=== PATIENT | female | born 1940 | race Caucasian/White ===

== ENCOUNTER 2022-08-13 01:56 | Inpatient (IN) | payer OTHER ==
[2022-08-13] MEDS ORDERED: ACETAMINOPHEN 1000 MG/100 ML BAG IVPB ONE ×2 (02:32→06:49)
[2022-08-13] MEDS ORDERED: LIDOCAINE 5% TOPICAL PATCH TP ONE (02:32)
[2022-08-13] MEDS ORDERED: morphine CARPU-JECT 2 MG/1 ML DISP.SYRIN IVPUSH ONE (02:32)
[2022-08-13 02:49] LABS: BASO % 0.6 % (0-2.0); EOS % 0.4 % (0-4.5); HEMATOCRIT 38.2 % (32.4-45.2); HEMOGLOBIN 13.3 GM/dL (10.7-15.3); LYMPH % 17.9 % (8-40); MCH 32.2 pg (25.7-33.7); MCHC 34.7 g/dl (32.0-36.0); MEAN CELL VOLUME 92.8 fl (80-96); MEAN PLT VOLUME 7.5 fl (7.5-11.1); MONO % 6.6 % (3.8-10.2); NEUT % 74.5 % (42.8-82.8); PLATELET COUNT 151 10^3/uL (134-434); RBC 4.12 M/mm3 (3.60-5.2); RDW 13.8 % (11.6-15.6)
[2022-08-13 02:55] LABS: INR 1.02 (0.83-1.09); PROTHROMBIN TIME (PATIENT) 11.7 SEC (9.7-13.0)
[2022-08-13] MEDS ORDERED: ACETAMINOPHEN INJECTION 100 ML IVPB ONE ×3 (02:55→15:43)
[2022-08-13] MEDS ORDERED: LIDOCAINE 5% TOPICAL PATCH ONE (02:56)
[2022-08-13 03:09] LABS: ALBUMIN 3.7 g/dl (3.4-5.0); BLOOD UREA NITROGEN 21.1 mg/dL (7-18); CALCIUM 8.9 mg/dL (8.5-10.1)
[2022-08-13 03:12] LABS: CREATININE 0.7 mg/dL (0.55-1.3)
[2022-08-13 03:15] LABS: BILIRUBIN,TOTAL 0.6 mg/dL (0.2-1); TOT PROT 6.4 g/dl (6.4-8.2)
[2022-08-13] MEDS ORDERED: KETOROLAC TROMETHAMINE 15 MG/ML VIAL IM ONE (06:10)
[2022-08-13] MEDS ORDERED: KETOROLAC TROMETHAMINE 15 MG/ML VIAL ONE (06:24)
[2022-08-13] MEDS ORDERED: HYDROmorphone HCL CARPU-JECT 2 MG/1 ML DISP.SYRIN IVPB ONE (06:45)
[2022-08-13] MEDS ORDERED: HYDROmorphone HCl 2 MG/ML VIAL ONE (07:37)
[2022-08-13] MEDS ORDERED: ACETAMINOPHEN 1000 MG/100 ML BAG IVPB PRN (14:55)
[2022-08-13] MEDS ORDERED: IBUPROFEN 400 MG TABLET (FP) PO PRN (15:15)
[2022-08-13] MEDS ORDERED: IBUPROFEN 400 MG TABLET (FP) PO ONE (18:01)
[2022-08-13] MEDS: IBUPROFEN 400 MG TABLET (FP) PO PRN (18:03)
[2022-08-13] MEDS ORDERED: HEPARIN NA (PORCINE) 5,000 UNITS/ML 1ML VIAL ONE (21:52)
[2022-08-13] MEDS: HEPARIN NA (PORCINE) 5,000 UNITS/ML 1ML VIAL SQ SCH (22:00)
[2022-08-13] MEDS: LIDOCAINE PATCH REMOVAL MC SCH (22:00)
[2022-08-14] MEDS ORDERED: FAMOTIDINE 20 MG TABLET ONE (09:28)
[2022-08-14] MEDS ORDERED: HEPARIN NA (PORCINE) 5,000 UNITS/ML 1ML VIAL ONE (09:28)
[2022-08-14] MEDS: HEPARIN NA (PORCINE) 5,000 UNITS/ML 1ML VIAL SQ SCH ×2 (09:33→21:34)
[2022-08-14] MEDS: FAMOTIDINE 20 MG TABLET PO SCH (09:33)
[2022-08-14 17:06] LABS: BASO % 0.1 % (0-2.0); HEMATOCRIT 22.1 % (32.4-45.2); HEMOGLOBIN 7.7 GM/dL (10.7-15.3); LYMPH % 11.3 % (8-40); MCH 32.7 pg (25.7-33.7); MEAN CELL VOLUME 93.4 fl (80-96); MEAN PLT VOLUME 8.4 fl (7.5-11.1); MONO % 7.4 % (3.8-10.2); NEUT % 81.2 % (42.8-82.8); PLATELET COUNT 130 10^3/uL (134-434); RBC 2.37 M/mm3 (3.60-5.2); WHITE BLOOD COUNT 9.8 K/mm3 (4.0-10.0)
[2022-08-14 17:38] LABS: CALCIUM 8.5 mg/dL (8.5-10.1)
[2022-08-14 17:42] LABS: CREATININE 1.1 mg/dL (0.55-1.3)
[2022-08-14 18:18] LABS: BLOOD UREA NITROGEN 47.6 mg/dL (7-18)
[2022-08-14] MEDS: IBUPROFEN 400 MG TABLET (FP) PO PRN (21:33)
[2022-08-14] MEDS: LIDOCAINE PATCH REMOVAL MC SCH (21:34)
[2022-08-15] MEDS ORDERED: SODIUM CHLORIDE 1,000 ML IV SCH ×2 (08:15→19:44)
[2022-08-15 08:31] LABS: EPI CELLS 2 /uL (0-25.1); HYALINE CASTS 0 /uL (0-3.1); URINE APPEARANCE CLEAR; URINE BACTERIA 5323 /uL (0-1359); URINE BILIRUBIN NEGATIVE (NEGATIVE); URINE COLOR YELLOW; URINE GLUCOSE (UA) 3+ (NEGATIVE); URINE KETONE TRACE (NEGATIVE); URINE LEUK ESTERASE TRACE (NEGATIVE); URINE NITRITE NEGATIVE (NEGATIVE); URINE PROTEIN NEGATIVE (NEGATIVE); URINE RBC 4 /uL (0-23.9); URINE UROBILINOGEN 0.2 mg/dL (0.2-1.0); URINE WBC 175 /uL (0-25.8)
[2022-08-15 09:19] LABS: YEAST NO SEEN (NEGATIVE)
[2022-08-15] MEDS ORDERED: CEFTRIAXONE 1 GM in DEXTROSE 5%-WATER - 50 ML IVPB SCH (10:00)
[2022-08-15] MEDS: FAMOTIDINE 20 MG TABLET PO SCH (10:20)
[2022-08-15] MEDS ORDERED: ACETAMINOPHEN 1000 MG/100 ML BAG IVPB PRN ×2 (10:36→19:44)
[2022-08-15 10:50] LABS: BASO % 0.2 % (0-2.0); EOS % 0.1 % (0-4.5); HEMATOCRIT 20.8 % (32.4-45.2); HEMOGLOBIN 7.3 GM/dL (10.7-15.3); LYMPH % 13.7 % (8-40); MCH 32.5 pg (25.7-33.7); MCHC 34.8 g/dl (32.0-36.0); MEAN CELL VOLUME 93.3 fl (80-96); MEAN PLT VOLUME 8.8 fl (7.5-11.1); MONO % 7.4 % (3.8-10.2); NEUT % 78.6 % (42.8-82.8); PLATELET COUNT 135 10^3/uL (134-434); RBC 2.23 M/mm3 (3.60-5.2); RDW 14.3 % (11.6-15.6); WHITE BLOOD COUNT 10.6 K/mm3 (4.0-10.0)
[2022-08-15] MEDS: INSULIN (NOVOLOG) ASPART 100 UNITS/ML 10ML VIAL SQ SCH ×3 (11:14→21:44)
[2022-08-15] MEDS ORDERED: PHYTONADIONE 10 MG/1 ML AMP SQ ONE (16:16)
[2022-08-15] MEDS: MUPIROCIN 2% TOPICAL OINTMENT FOR DECOLONIZATION NS SCH (21:43)
[2022-08-15] MEDS: LIDOCAINE PATCH REMOVAL MC SCH (21:44)
[2022-08-15] MEDS ORDERED: CHLORHEXIDINE GLUCONATE 4% CLEANSER FOR DECOLONIZATION TP SCH (22:00)
[2022-08-15 22:37] LABS: BASO % 0.3 % (0-2.0); HEMATOCRIT 24.9 % (32.4-45.2); HEMOGLOBIN 8.6 GM/dL (10.7-15.3); LYMPH % 21.3 % (8-40); MCH 32.1 pg (25.7-33.7); MCHC 34.7 g/dl (32.0-36.0); MEAN CELL VOLUME 92.6 fl (80-96); MEAN PLT VOLUME 7.8 fl (7.5-11.1); MONO % 7.3 % (3.8-10.2); NEUT % 71.1 % (42.8-82.8); PLATELET COUNT 147 10^3/uL (134-434); RBC 2.69 M/mm3 (3.60-5.2); RDW 13.9 % (11.6-15.6); WHITE BLOOD COUNT 11.1 K/mm3 (4.0-10.0)
[2022-08-15 22:57] LABS: ALBUMIN 3.5 g/dl (3.4-5.0); CALCIUM 8.7 mg/dL (8.5-10.1)
[2022-08-15 23:00] LABS: CREATININE 0.6 mg/dL (0.55-1.3)
[2022-08-15 23:02] LABS: BILIRUBIN,TOTAL 0.9 mg/dL (0.2-1); TOT PROT 6.4 g/dl (6.4-8.2)
[2022-08-16] MEDS: INSULIN (NOVOLOG) ASPART 100 UNITS/ML 10ML VIAL SQ SCH ×4 (07:02→23:20)
[2022-08-16 08:14] LABS: BASO % 0.4 % (0-2.0); EOS % 0.1 % (0-4.5); HEMATOCRIT 22.6 % (32.4-45.2); LYMPH % 23.3 % (8-40); MCH 32.6 pg (25.7-33.7); MCHC 35.3 g/dl (32.0-36.0); MEAN CELL VOLUME 92.4 fl (80-96); MEAN PLT VOLUME 8.6 fl (7.5-11.1); MONO % 6.3 % (3.8-10.2); NEUT % 69.9 % (42.8-82.8); PLATELET COUNT 139 10^3/uL (134-434); RBC 2.45 M/mm3 (3.60-5.2); RDW 14.1 % (11.6-15.6); RETICULOCYTES 2.52 % (0.5-1.5); WHITE BLOOD COUNT 8.3 K/mm3 (4.0-10.0)
[2022-08-16 08:25] LABS: CALCIUM 8.2 mg/dL (8.5-10.1)
[2022-08-16 08:26] LABS: ALBUMIN 3.1 g/dl (3.4-5.0); BLOOD UREA NITROGEN 33.2 mg/dL (7-18)
[2022-08-16 08:29] LABS: CREATININE 0.5 mg/dL (0.55-1.3)
[2022-08-16 08:30] LABS: TOT PROT 5.7 g/dl (6.4-8.2)
[2022-08-16] MEDS ORDERED: traMADol HCL 50 MG TABLET PO ONE (08:50)
[2022-08-16] MEDS ORDERED: CEFTRIAXONE 1 GM in DEXTROSE 5%-WATER - 50 ML IVPB SCH (10:00)
[2022-08-16] MEDS ORDERED: FAMOTIDINE 20 MG TABLET PO SCH (10:00)
[2022-08-16] MEDS: MUPIROCIN 2% TOPICAL OINTMENT FOR DECOLONIZATION NS SCH (11:05)
[2022-08-16 20:19] LABS: BASO % 0.3 % (0-2.0); EOS % 0.5 % (0-4.5); HEMATOCRIT 22.5 % (32.4-45.2); HEMOGLOBIN 7.7 GM/dL (10.7-15.3); LYMPH % 25.6 % (8-40); MCH 31.8 pg (25.7-33.7); MCHC 34.1 g/dl (32.0-36.0); MEAN CELL VOLUME 93.3 fl (80-96); MEAN PLT VOLUME 7.5 fl (7.5-11.1); MONO % 8.1 % (3.8-10.2); NEUT % 65.5 % (42.8-82.8); PLATELET COUNT 151 10^3/uL (134-434); RBC 2.42 M/mm3 (3.60-5.2); RDW 14.1 % (11.6-15.6); WHITE BLOOD COUNT 7.9 K/mm3 (4.0-10.0)
[2022-08-16 20:39] LABS: INR 0.98 (0.83-1.09); PROTHROMBIN TIME (PATIENT) 11.3 SEC (9.7-13.0)
[2022-08-16 20:41] LABS: ACTIVATED PTT 22.3 SECONDS (25.2-36.5)
[2022-08-16] MEDS: LIDOCAINE PATCH REMOVAL MC SCH (23:22)
[2022-08-17] MEDS: INSULIN (NOVOLOG) ASPART 100 UNITS/ML 10ML VIAL SQ SCH (06:39)
[2022-08-17] MEDS: CEFTRIAXONE 1 GM in DEXTROSE 5%-WATER - 50 ML IVPB SCH (09:23)
[2022-08-17] MEDS: FAMOTIDINE 20 MG TABLET PO SCH (09:23)
[2022-08-17] MEDS: MULTIVITAMINS (DAILY MVI) TABLET (FP) PO SCH (10:24)
[2022-08-17] MEDS: FERROUS SO4 325 MG TABLET (FP) PO SCH (10:24)
[2022-08-17] MEDS: ACETAMINOPHEN 325 MG TABLET (FP) PO PRN ×2 (10:31→17:47)
[2022-08-17 11:49] LABS: BASO % 0.3 % (0-2.0); EOS % 0.3 % (0-4.5); HEMATOCRIT 24.3 % (32.4-45.2); HEMOGLOBIN 8.3 GM/dL (10.7-15.3); LYMPH % 17.8 % (8-40); MCH 31.8 pg (25.7-33.7); MCHC 34.3 g/dl (32.0-36.0); MEAN CELL VOLUME 92.7 fl (80-96); MEAN PLT VOLUME 8.1 fl (7.5-11.1); MONO % 8.2 % (3.8-10.2); NEUT % 73.4 % (42.8-82.8); PLATELET COUNT 169 10^3/uL (134-434); RBC 2.62 M/mm3 (3.60-5.2); WHITE BLOOD COUNT 7.3 K/mm3 (4.0-10.0)
[2022-08-17] MEDS: INSULIN SLIDING SCALE (NOVOLOG) 1 VIAL SQ SCH ×3 (12:09→21:10)
[2022-08-17 12:14] LABS: BLOOD UREA NITROGEN 19.9 mg/dL (7-18)
[2022-08-17 12:15] LABS: ALBUMIN 3.1 g/dl (3.4-5.0)
[2022-08-17 12:16] LABS: CALCIUM 8.7 mg/dL (8.5-10.1)
[2022-08-17 12:19] LABS: CREATININE 0.5 mg/dL (0.55-1.3)
[2022-08-17 12:21] LABS: BILIRUBIN,TOTAL 1.3 mg/dL (0.2-1); TOT PROT 5.6 g/dl (6.4-8.2)
[2022-08-17] MEDS: LISINOPRIL 5 MG TABLET PO SCH (13:03)
[2022-08-17] MEDS: INSULIN (NOVOLOG MIX 70/30) 100 UNITS/ML MDV SQ SCH (17:07)
[2022-08-17] MEDS ORDERED: INSULIN (NOVOLOG) ASPART 100 UNITS/ML 10ML VIAL ONE (20:52)
[2022-08-17] MEDS ORDERED: LIDOCAINE PATCH REMOVAL MC ONE (22:00)
[2022-08-18] MEDS: INSULIN (NOVOLOG MIX 70/30) 100 UNITS/ML MDV SQ SCH ×2 (06:14→16:53)
[2022-08-18] MEDS: INSULIN SLIDING SCALE (NOVOLOG) 1 VIAL SQ SCH ×4 (06:14→21:28)
[2022-08-18] MEDS: ACETAMINOPHEN 325 MG TABLET (FP) PO PRN ×2 (07:05→14:42)
[2022-08-18] MEDS: LISINOPRIL 5 MG TABLET PO SCH (09:17)
[2022-08-18] MEDS: FAMOTIDINE 20 MG TABLET PO SCH (09:17)
[2022-08-18] MEDS: CEFTRIAXONE 1 GM in DEXTROSE 5%-WATER - 50 ML IVPB SCH (09:17)
[2022-08-18] MEDS: MULTIVITAMINS (DAILY MVI) TABLET (FP) PO SCH (09:17)
[2022-08-18] MEDS: FERROUS SO4 325 MG TABLET (FP) PO SCH (09:17)
[2022-08-18 09:25] LABS: PH,URINE 7.5 (5.0-8.0); URINE APPEARANCE CLEAR; URINE BILIRUBIN NEGATIVE (NEGATIVE); URINE COLOR YELLOW; URINE GLUCOSE (UA) 1+ (NEGATIVE); URINE KETONE 1+ (NEGATIVE); URINE LEUK ESTERASE NEGATIVE (NEGATIVE); URINE NITRITE NEGATIVE (NEGATIVE); URINE PROTEIN NEGATIVE (NEGATIVE)
[2022-08-18 11:11] LABS: BASO % 0.5 % (0-2.0); EOS % 0.2 % (0-4.5); HEMATOCRIT 30.1 % (32.4-45.2); HEMOGLOBIN 10.8 GM/dL (10.7-15.3); LYMPH % 18.1 % (8-40); MCH 32.8 pg (25.7-33.7); MEAN CELL VOLUME 91.3 fl (80-96); MEAN PLT VOLUME 7.9 fl (7.5-11.1); NEUT % 72.2 % (42.8-82.8); PLATELET COUNT 175 10^3/uL (134-434); RDW 13.6 % (11.6-15.6); WHITE BLOOD COUNT 7.6 K/mm3 (4.0-10.0)
[2022-08-18] MEDS: traMADol HCL 50 MG TABLET PO PRN (12:17)
[2022-08-18] MEDS ORDERED: INSULIN (NOVOLOG) ASPART 100 UNITS/ML 10ML VIAL ONE ×2 (16:58→20:51)
[2022-08-19] MEDS: ACETAMINOPHEN 325 MG TABLET (FP) PO PRN ×2 (06:42→21:56)
[2022-08-19] MEDS: INSULIN (NOVOLOG MIX 70/30) 100 UNITS/ML MDV SQ SCH ×2 (06:42→17:07)
[2022-08-19] MEDS: INSULIN SLIDING SCALE (NOVOLOG) 1 VIAL SQ SCH ×4 (07:56→21:57)
[2022-08-19] MEDS: traMADol HCL 50 MG TABLET PO PRN (08:33)
[2022-08-19] MEDS: CEFTRIAXONE 1 GM in DEXTROSE 5%-WATER - 50 ML IVPB SCH (09:19)
[2022-08-19] MEDS: FERROUS SO4 325 MG TABLET (FP) PO SCH (09:20)
[2022-08-19] MEDS: FAMOTIDINE 20 MG TABLET PO SCH (09:20)
[2022-08-19] MEDS: MULTIVITAMINS (DAILY MVI) TABLET (FP) PO SCH (09:20)
[2022-08-19] MEDS: LISINOPRIL 5 MG TABLET PO SCH (09:20)
[2022-08-19] MEDS ORDERED: ACETAMINOPHEN 1000 MG/100 ML BAG IVPB PRN (13:40)
[2022-08-19] MEDS: POLYETHYLENE GLYCOL (HEALTHYLAX) 3350 17 GM PACKET PO SCH ×2 (14:19→21:56)
[2022-08-19] MEDS: DOCUSATE SODIUM 100 MG CAPSULE (FP) PO SCH (14:19)
[2022-08-20] MEDS: ACETAMINOPHEN 325 MG TABLET (FP) PO PRN ×2 (03:49→23:27)
[2022-08-20] MEDS: INSULIN (NOVOLOG MIX 70/30) 100 UNITS/ML MDV SQ SCH ×2 (06:03→16:30)
[2022-08-20] MEDS ORDERED: INSULIN (NOVOLOG) ASPART 100 UNITS/ML 10ML VIAL ONE ×2 (06:43→11:38)
[2022-08-20] MEDS: INSULIN SLIDING SCALE (NOVOLOG) 1 VIAL SQ SCH ×4 (06:57→21:26)
[2022-08-20] MEDS: traMADol HCL 50 MG TABLET PO PRN ×2 (08:15→17:55)
[2022-08-20] MEDS: DOCUSATE SODIUM 100 MG CAPSULE (FP) PO SCH (10:09)
[2022-08-20] MEDS: POLYETHYLENE GLYCOL (HEALTHYLAX) 3350 17 GM PACKET PO SCH ×2 (10:09→21:25)
[2022-08-20] MEDS: MULTIVITAMINS (DAILY MVI) TABLET (FP) PO SCH (10:09)
[2022-08-20] MEDS: FERROUS SO4 325 MG TABLET (FP) PO SCH (10:09)
[2022-08-20] MEDS: CEFTRIAXONE 1 GM in DEXTROSE 5%-WATER - 50 ML IVPB SCH (10:09)
[2022-08-20] MEDS: LISINOPRIL 5 MG TABLET PO SCH (10:09)
[2022-08-20] MEDS: FAMOTIDINE 20 MG TABLET PO SCH (10:09)
[2022-08-20 11:04] LABS: BASO % 0.5 % (0-2.0); EOS % 0.7 % (0-4.5); HEMATOCRIT 32.1 % (32.4-45.2); HEMOGLOBIN 11.5 GM/dL (10.7-15.3); LYMPH % 19.2 % (8-40); MCH 33.2 pg (25.7-33.7); MCHC 35.7 g/dl (32.0-36.0); MEAN CELL VOLUME 92.9 fl (80-96); MEAN PLT VOLUME 7.6 fl (7.5-11.1); MONO % 9.2 % (3.8-10.2); NEUT % 70.4 % (42.8-82.8); PLATELET COUNT 234 10^3/uL (134-434); RBC 3.45 M/mm3 (3.60-5.2); RDW 13.9 % (11.6-15.6); WHITE BLOOD COUNT 9.2 K/mm3 (4.0-10.0)
[2022-08-20 11:25] LABS: CALCIUM 8.4 mg/dL (8.5-10.1)
[2022-08-20 11:26] LABS: BLOOD UREA NITROGEN 17.8 mg/dL (7-18)
[2022-08-20 11:29] LABS: CREATININE 0.4 mg/dL (0.55-1.3)
[2022-08-20 11:31] LABS: BILIRUBIN,TOTAL 1.4 mg/dL (0.2-1); TOT PROT 5.8 g/dl (6.4-8.2)
[2022-08-21] MEDS: INSULIN (NOVOLOG MIX 70/30) 100 UNITS/ML MDV SQ SCH ×2 (07:03→16:35)
[2022-08-21] MEDS: INSULIN SLIDING SCALE (NOVOLOG) 1 VIAL SQ SCH ×4 (07:04→21:27)
[2022-08-21] MEDS: LISINOPRIL 5 MG TABLET PO SCH (09:13)
[2022-08-21] MEDS: POLYETHYLENE GLYCOL (HEALTHYLAX) 3350 17 GM PACKET PO SCH ×2 (09:13→21:24)
[2022-08-21] MEDS: DOCUSATE SODIUM 100 MG CAPSULE (FP) PO SCH (09:13)
[2022-08-21] MEDS: FAMOTIDINE 20 MG TABLET PO SCH (09:13)
[2022-08-21] MEDS: FERROUS SO4 325 MG TABLET (FP) PO SCH (09:13)
[2022-08-21] MEDS: ACETAMINOPHEN 325 MG TABLET (FP) PO PRN ×3 (09:13→21:24)
[2022-08-21] MEDS: MULTIVITAMINS (DAILY MVI) TABLET (FP) PO SCH (09:13)
[2022-08-21] MEDS: CEFTRIAXONE 1 GM in DEXTROSE 5%-WATER - 50 ML IVPB SCH (09:14)
[2022-08-21] MEDS: traMADol HCL 50 MG TABLET PO PRN (10:25)
[2022-08-21] MEDS ORDERED: traMADol HCL 50 MG TABLET PO PRN (17:28)
[2022-08-22] MEDS: INSULIN (NOVOLOG MIX 70/30) 100 UNITS/ML MDV SQ SCH ×2 (06:08→16:51)
[2022-08-22] MEDS: INSULIN SLIDING SCALE (NOVOLOG) 1 VIAL SQ SCH ×4 (06:37→22:15)
[2022-08-22] MEDS ORDERED: INSULIN (NOVOLOG) ASPART 100 UNITS/ML 10ML VIAL ONE (06:44)
[2022-08-22] MEDS ORDERED: INSULIN (NOVOLOG MIX 70/30) 100 UNITS/ML MDV SQ ONE (06:44)
[2022-08-22] MEDS: CEFTRIAXONE 1 GM in DEXTROSE 5%-WATER - 50 ML IVPB SCH (10:11)
[2022-08-22] MEDS: POLYETHYLENE GLYCOL (HEALTHYLAX) 3350 17 GM PACKET PO SCH ×2 (10:11→22:05)
[2022-08-22] MEDS: FERROUS SO4 325 MG TABLET (FP) PO SCH (10:12)
[2022-08-22] MEDS: FAMOTIDINE 20 MG TABLET PO SCH (10:12)
[2022-08-22] MEDS: LISINOPRIL 5 MG TABLET PO SCH (10:12)
[2022-08-22] MEDS: ACETAMINOPHEN 325 MG TABLET (FP) PO PRN (10:12)
[2022-08-22] MEDS: DOCUSATE SODIUM 100 MG CAPSULE (FP) PO SCH (10:12)
[2022-08-22] MEDS: MULTIVITAMINS (DAILY MVI) TABLET (FP) PO SCH (10:12)
[2022-08-22 12:52] VITALS: BMI 24.3
[2022-08-22 12:58] LABS: BASO % 0.6 % (0-2.0); EOS % 0.8 % (0-4.5); HEMATOCRIT 33.9 % (32.4-45.2); HEMOGLOBIN 11.7 GM/dL (10.7-15.3); LYMPH % 21.5 % (8-40); MCH 32.4 pg (25.7-33.7); MCHC 34.6 g/dl (32.0-36.0); MEAN CELL VOLUME 93.7 fl (80-96); MEAN PLT VOLUME 7.8 fl (7.5-11.1); MONO % 8.5 % (3.8-10.2); NEUT % 68.6 % (42.8-82.8); PLATELET COUNT 273 10^3/uL (134-434); RBC 3.62 M/mm3 (3.60-5.2); RDW 14.2 % (11.6-15.6)
[2022-08-22 14:00] LABS: ALBUMIN 2.9 g/dl (3.4-5.0); CALCIUM 8.7 mg/dL (8.5-10.1)
[2022-08-22 14:03] LABS: CREATININE 0.5 mg/dL (0.55-1.3)
[2022-08-22 14:05] LABS: TOT PROT 5.6 g/dl (6.4-8.2)
[2022-08-22] MEDS ORDERED: ACETAMINOPHEN 500 MG TABLET (FP) PO PRN (14:30)
[2022-08-22] MEDS: LIDOCAINE 5% TOPICAL PATCH TP SCH (15:48)
[2022-08-22] MEDS: traMADol HCL 50 MG TABLET PO PRN (22:06)
[2022-08-22] MEDS: LIDOCAINE PATCH REMOVAL MC SCH (22:14)
[2022-08-23] MEDS: INSULIN (NOVOLOG MIX 70/30) 100 UNITS/ML MDV SQ SCH ×2 (06:14→17:31)
[2022-08-23] MEDS: INSULIN SLIDING SCALE (NOVOLOG) 1 VIAL SQ SCH ×4 (06:15→22:38)
[2022-08-23] MEDS: GABAPENTIN 100 MG CAPSULE PO SCH ×3 (07:48→21:47)
[2022-08-23] MEDS: DOCUSATE SODIUM 100 MG CAPSULE (FP) PO SCH (09:20)
[2022-08-23] MEDS: MULTIVITAMINS (DAILY MVI) TABLET (FP) PO SCH (09:20)
[2022-08-23] MEDS: LISINOPRIL 5 MG TABLET PO SCH (09:20)
[2022-08-23] MEDS: POLYETHYLENE GLYCOL (HEALTHYLAX) 3350 17 GM PACKET PO SCH ×2 (09:20→21:47)
[2022-08-23] MEDS: FERROUS SO4 325 MG TABLET (FP) PO SCH (09:20)
[2022-08-23] MEDS: FAMOTIDINE 20 MG TABLET PO SCH (09:20)
[2022-08-23] MEDS: LIDOCAINE 5% TOPICAL PATCH TP SCH (09:21)
[2022-08-23] MEDS: LIDOCAINE PATCH REMOVAL MC SCH (22:47)
[2022-08-24] MEDS: GABAPENTIN 100 MG CAPSULE PO SCH (06:43)
[2022-08-24] MEDS: INSULIN (NOVOLOG MIX 70/30) 100 UNITS/ML MDV SQ SCH ×2 (07:45→17:36)
[2022-08-24] MEDS: INSULIN SLIDING SCALE (NOVOLOG) 1 VIAL SQ SCH ×4 (07:45→21:36)
[2022-08-24] MEDS ORDERED: INSULIN (NOVOLOG MIX 70/30) 100 UNITS/ML MDV SQ ONE (07:47)
[2022-08-24] MEDS: traMADol HCL 50 MG TABLET PO PRN ×2 (09:10→21:40)
[2022-08-24] MEDS: DOCUSATE SODIUM 100 MG CAPSULE (FP) PO SCH (09:33)
[2022-08-24] MEDS: FERROUS SO4 325 MG TABLET (FP) PO SCH (09:34)
[2022-08-24] MEDS: POLYETHYLENE GLYCOL (HEALTHYLAX) 3350 17 GM PACKET PO SCH ×2 (09:35→21:47)
[2022-08-24] MEDS: LIDOCAINE 5% TOPICAL PATCH TP SCH (09:35)
[2022-08-24] MEDS: FAMOTIDINE 20 MG TABLET PO SCH (09:36)
[2022-08-24] MEDS: LISINOPRIL 5 MG TABLET PO SCH (09:37)
[2022-08-24] MEDS: MULTIVITAMINS (DAILY MVI) TABLET (FP) PO SCH (09:37)
[2022-08-24] MEDS: GABAPENTIN 300 MG CAPSULE PO SCH ×2 (13:35→21:40)
[2022-08-24 17:04] LABS: BASO % 0.5 % (0-2.0); EOS % 0.7 % (0-4.5); HEMATOCRIT 36.9 % (32.4-45.2); HEMOGLOBIN 12.3 GM/dL (10.7-15.3); LYMPH % 17.3 % (8-40); MCH 31.3 pg (25.7-33.7); MCHC 33.4 g/dl (32.0-36.0); MEAN CELL VOLUME 93.8 fl (80-96); MEAN PLT VOLUME 8.2 fl (7.5-11.1); MONO % 8.3 % (3.8-10.2); NEUT % 73.2 % (42.8-82.8); PLATELET COUNT 301 10^3/uL (134-434); RBC 3.93 M/mm3 (3.60-5.2); RDW 14.1 % (11.6-15.6); WHITE BLOOD COUNT 10.4 K/mm3 (4.0-10.0)
[2022-08-24 17:29] LABS: BLOOD UREA NITROGEN 29.8 mg/dL (7-18); CALCIUM 8.8 mg/dL (8.5-10.1)
[2022-08-24 17:30] LABS: ALBUMIN 3.1 g/dl (3.4-5.0)
[2022-08-24 17:32] LABS: CREATININE 0.5 mg/dL (0.55-1.3)
[2022-08-24 17:34] LABS: BILIRUBIN,TOTAL 1.3 mg/dL (0.2-1); TOT PROT 5.8 g/dl (6.4-8.2)
[2022-08-24] MEDS: ACETAMINOPHEN 500 MG TABLET (FP) PO SCH (17:35)
[2022-08-24] MEDS: LIDOCAINE PATCH REMOVAL MC SCH (21:47)
[2022-08-25] MEDS: ACETAMINOPHEN 500 MG TABLET (FP) PO SCH ×4 (01:00→17:32)
[2022-08-25] MEDS: GABAPENTIN 300 MG CAPSULE PO SCH ×3 (06:24→21:37)
[2022-08-25] MEDS: INSULIN SLIDING SCALE (NOVOLOG) 1 VIAL SQ SCH ×4 (06:24→21:40)
[2022-08-25] MEDS: INSULIN (NOVOLOG MIX 70/30) 100 UNITS/ML MDV SQ SCH ×2 (06:24→17:19)
[2022-08-25] MEDS: LISINOPRIL 5 MG TABLET PO SCH (10:38)
[2022-08-25] MEDS: POLYETHYLENE GLYCOL (HEALTHYLAX) 3350 17 GM PACKET PO SCH ×2 (10:38→21:40)
[2022-08-25] MEDS: MULTIVITAMINS (DAILY MVI) TABLET (FP) PO SCH (10:38)
[2022-08-25] MEDS: FAMOTIDINE 20 MG TABLET PO SCH (10:38)
[2022-08-25] MEDS: LIDOCAINE 5% TOPICAL PATCH TP SCH (10:38)
[2022-08-25] MEDS: FERROUS SO4 325 MG TABLET (FP) PO SCH (10:39)
[2022-08-25] MEDS: DOCUSATE SODIUM 100 MG CAPSULE (FP) PO SCH (10:39)
[2022-08-25] MEDS ORDERED: oxyCODONE HCL 5 MG TABLET PO ONE (12:42)
[2022-08-25 14:36] VITALS: RESP 18
[2022-08-25] MEDS ORDERED: INSULIN (NOVOLOG) ASPART 100 UNITS/ML 10ML VIAL ONE (21:36)
[2022-08-25] MEDS: LIDOCAINE PATCH REMOVAL MC SCH (21:40)
[2022-08-26] MEDS: ACETAMINOPHEN 500 MG TABLET (FP) PO SCH ×3 (01:05→12:00)
[2022-08-26] MEDS: GABAPENTIN 300 MG CAPSULE PO SCH ×3 (06:36→21:24)
[2022-08-26] MEDS: INSULIN SLIDING SCALE (NOVOLOG) 1 VIAL SQ SCH ×4 (06:38→21:24)
[2022-08-26] MEDS: INSULIN (NOVOLOG MIX 70/30) 100 UNITS/ML MDV SQ SCH ×2 (06:38→16:37)
[2022-08-26] MEDS: FERROUS SO4 325 MG TABLET (FP) PO SCH (10:43)
[2022-08-26] MEDS: FAMOTIDINE 20 MG TABLET PO SCH (10:43)
[2022-08-26] MEDS: DOCUSATE SODIUM 100 MG CAPSULE (FP) PO SCH (10:43)
[2022-08-26] MEDS: POLYETHYLENE GLYCOL (HEALTHYLAX) 3350 17 GM PACKET PO SCH (10:43)
[2022-08-26] MEDS: LIDOCAINE 5% TOPICAL PATCH TP SCH (10:43)
[2022-08-26] MEDS: LISINOPRIL 5 MG TABLET PO SCH (10:43)
[2022-08-26] MEDS: MULTIVITAMINS (DAILY MVI) TABLET (FP) PO SCH (10:43)
[2022-08-26] MEDS ORDERED: ACETAMINOPHEN 500 MG TABLET (FP) PO PRN (15:13)
[2022-08-26] MEDS: oxyCODONE HCL 5 MG TABLET PO PRN (16:39)
[2022-08-26] MEDS: LIDOCAINE PATCH REMOVAL MC SCH (21:24)
[2022-08-27] MEDS: INSULIN SLIDING SCALE (NOVOLOG) 1 VIAL SQ SCH ×4 (06:35→22:00)
[2022-08-27] MEDS: INSULIN (NOVOLOG MIX 70/30) 100 UNITS/ML MDV SQ SCH ×2 (06:35→17:25)
[2022-08-27] MEDS: GABAPENTIN 300 MG CAPSULE PO SCH ×3 (06:35→22:00)
[2022-08-27] MEDS: DOCUSATE SODIUM 100 MG CAPSULE (FP) PO SCH (11:35)
[2022-08-27] MEDS: POLYETHYLENE GLYCOL (HEALTHYLAX) 3350 17 GM PACKET PO SCH (11:36)
[2022-08-27] MEDS: FAMOTIDINE 20 MG TABLET PO SCH (11:36)
[2022-08-27] MEDS: MULTIVITAMINS (DAILY MVI) TABLET (FP) PO SCH (11:36)
[2022-08-27] MEDS: FERROUS SO4 325 MG TABLET (FP) PO SCH (11:36)
[2022-08-27] MEDS: LIDOCAINE 5% TOPICAL PATCH TP SCH (11:36)
[2022-08-27] MEDS: LISINOPRIL 5 MG TABLET PO SCH (11:36)
[2022-08-27] MEDS: oxyCODONE HCL 5 MG TABLET PO PRN (11:39)
[2022-08-27] MEDS: LIDOCAINE PATCH REMOVAL MC SCH (22:00)
[2022-08-28] MEDS: INSULIN SLIDING SCALE (NOVOLOG) 1 VIAL SQ SCH ×2 (06:18→11:49)
[2022-08-28] MEDS: GABAPENTIN 300 MG CAPSULE PO SCH (06:19)
[2022-08-28] MEDS: INSULIN (NOVOLOG MIX 70/30) 100 UNITS/ML MDV SQ SCH (06:20)
[2022-08-28] MEDS: FERROUS SO4 325 MG TABLET (FP) PO SCH (10:18)
[2022-08-28] MEDS: LIDOCAINE 5% TOPICAL PATCH TP SCH (10:18)
[2022-08-28] MEDS: POLYETHYLENE GLYCOL (HEALTHYLAX) 3350 17 GM PACKET PO SCH (10:18)
[2022-08-28] MEDS: LISINOPRIL 5 MG TABLET PO SCH (10:18)
[2022-08-28] MEDS: DOCUSATE SODIUM 100 MG CAPSULE (FP) PO SCH (10:18)
[2022-08-28] MEDS: MULTIVITAMINS (DAILY MVI) TABLET (FP) PO SCH (10:18)
[2022-08-28] MEDS: FAMOTIDINE 20 MG TABLET PO SCH (10:18)
[2022-08-28] MEDS: oxyCODONE HCL 5 MG TABLET PO PRN (10:24)
[2022-08-28 12:50] VITALS: BP 116/76; PULSE 74; TEMP 98
== END 2022-08-28 13:00 | DRG 914 ==
LOC: JER 01:56 → JERBED 06:22 → J7W 08-14 16:25 → JICU 08-15 16:23 → J6S 08-16 21:08
PROVIDERS: ADMIT Specialist; ATTEND Specialist
PROC: 30233N1 Transfusion of Nonautologous Red Blood Cells into Peripheral Vein, Percutaneous Approach (ICD-10-PCS; principal; 2022-08-15)
DX: S36.892A Contusion of other intra-abdominal organs, initial encounter (principal); D62 Acute posthemorrhagic anemia; C79.51 Secondary malignant neoplasm of bone; N39.0 Urinary tract infection, site not specified; I25.10 Atherosclerotic heart disease of native coronary artery without angina pectoris; F41.8 Other specified anxiety disorders; M25.551 Pain in right hip; M41.9 Scoliosis, unspecified; M81.0 Age-related osteoporosis without current pathological fracture; S32.028D Other fracture of second lumbar vertebra, subsequent encounter for fracture with routine healing; Z88.5 Allergy status to narcotic agent; Z95.0 Presence of cardiac pacemaker; W05.0XXA Fall from non-moving wheelchair, initial encounter; Y92.091 Bathroom in other non-institutional residence as the place of occurrence of the external cause
CPT/HCPCS: 36415; 36430; 70450-TC; 71045-TC-FY; 71250-TC; 72131-TC; 73521-TC-FY; 73700-TC-RT; 74174-TC; 74176-TC; 80048; 80053; 81003; 82272; 82550; 82553; 82607; 82728; 82962; 83540; 83615; 84484; 85025; 85045; 85384; 85610; 85730; 86900; 86922; 87086; 93005; 93010; 94010; 97116-GP; 97161-GP; 99285-25; C9803-CS; J1644; P9058; U0003; U0005

== ENCOUNTER 2023-03-30 14:00 | Inpatient (IN) | payer OTHER ==
[2023-03-30 14:39] VITALS: BMI 25.8
[2023-03-30 15:39] LABS: BASO % 0.4 % (0-2.0); EOS % 0.9 % (0-4.5); HEMATOCRIT 35.5 % (32.4-45.2); HEMOGLOBIN 12.3 GM/dL (10.7-15.3); LYMPH % 14.1 % (8-40); MCH 30.5 pg (25.7-33.7); MCHC 34.7 g/dl (32.0-36.0); MEAN CELL VOLUME 87.8 fl (80-96); MEAN PLT VOLUME 8.2 fl (7.5-11.1); MONO % 6.7 % (3.8-10.2); NEUT % 77.9 % (42.8-82.8); PLATELET COUNT 261 10^3/uL (134-434); RBC 4.04 M/mm3 (3.60-5.2); RDW 14.5 % (11.6-15.6); WHITE BLOOD COUNT 10.1 K/mm3 (4.0-10.0)
[2023-03-30 15:43] LABS: EPI CELLS 10 /uL (0-25.1); HYALINE CASTS 1 /uL (0-3.1); URINE APPEARANCE CLEAR; URINE BACTERIA 3 /uL (0-1359); URINE BILIRUBIN NEGATIVE (NEGATIVE); URINE COLOR YELLOW; URINE GLUCOSE (UA) NEGATIVE (NEGATIVE); URINE KETONE NEGATIVE (NEGATIVE); URINE LEUK ESTERASE TRACE (NEGATIVE); URINE NITRITE NEGATIVE (NEGATIVE); URINE PROTEIN NEGATIVE (NEGATIVE); URINE RBC 30 /uL (0-23.9); URINE WBC 53 /uL (0-25.8)
[2023-03-30] MEDS ORDERED: VANCOMYCIN 1 GM in D5W (PRE-DOCKED) 1,000 MG/250 ML (RESTRICTED TO ID ONLY IVPB ONE (15:48)
[2023-03-30] MEDS ORDERED: PIPERACILLIN/TAZOB 4.5 GM 4.5 GM in DEXTROSE 5%-WATER 100 ML IVPB ONE (15:51)
[2023-03-30 15:55] LABS: ACTIVATED PTT 31.8 SECONDS (25.2-36.5); INR 1.1 (0.83-1.09); PROTHROMBIN TIME (PATIENT) 12.8 SEC (9.7-13.0)
[2023-03-30 16:03] LABS: POTASSIUM 4.5 mmol/L (3.5-5.1)
[2023-03-30 16:05] LABS: ALBUMIN 2.9 g/dl (3.4-5.0); CALCIUM 9.4 mg/dL (8.5-10.1)
[2023-03-30 16:08] LABS: CREATININE 0.5 mg/dL (0.55-1.3)
[2023-03-30 16:10] LABS: BILIRUBIN,TOTAL 0.3 mg/dL (0.2-1); TOT PROT 6.9 g/dl (6.4-8.2)
[2023-03-30] MEDS ORDERED: PIPERACILLIN/TAZOB 4.5 GM 4.5 GM/100 ML BAG IVPB ONE (16:15)
[2023-03-30] MEDS ORDERED: VANCOMYCIN/WATER FOR INJ (PEG) 1,000 MG/200 ML BAG IVPB ONE (16:15)
[2023-03-30 16:16] LABS: ERYTHROCYTE SEDIMENTATION RATE 6 mm/hr (0-30)
[2023-03-30] MEDS ORDERED: ACETAMINOPHEN 500 MG TABLET (FP) PO PRN (21:31)
[2023-03-30] MEDS: LISINOPRIL 5 MG TABLET PO SCH (21:52)
[2023-03-30] MEDS: POLYETHYLENE GLYCOL (HEALTHYLAX) 3350 17 GM PACKET PO SCH (21:52)
[2023-03-30] MEDS: MULTIVITAMINS (DAILY MVI) TABLET (FP) PO SCH (21:52)
[2023-03-30] MEDS: GABAPENTIN 300 MG CAPSULE PO SCH (21:52)
[2023-03-30] MEDS: FAMOTIDINE 20 MG TABLET PO SCH (21:53)
[2023-03-30] MEDS: DOCUSATE SODIUM 100 MG CAPSULE (FP) PO SCH (21:53)
[2023-03-30] MEDS: FERROUS SO4 325 MG TABLET (FP) PO SCH (21:53)
[2023-03-30] MEDS: INSULIN SLIDING SCALE (NOVOLOG) 1 VIAL SQ SCH (21:56)
[2023-03-30] MEDS ORDERED: PATIENT'S OWN MEDICATION (NON-FORMULARY) (Lidocaine Patch Removal 1 EACH Each) MC SCH (22:00)
[2023-03-31] MEDS ORDERED: PIPERACILLIN/TAZOB 4.5 GM 4.5 GM in DEXTROSE 5%-WATER 100 ML IVPB ONE (00:26)
[2023-03-31] MEDS ORDERED: INSULIN (NOVOLOG) ASPART 100 UNITS/ML 10ML VIAL ONE ×3 (06:36→20:56)
[2023-03-31] MEDS: INSULIN (NOVOLOG MIX 70/30) 100 UNITS/ML MDV SQ SCH ×2 (06:56→16:36)
[2023-03-31] MEDS: GABAPENTIN 300 MG CAPSULE PO SCH ×3 (06:57→22:24)
[2023-03-31] MEDS: INSULIN SLIDING SCALE (NOVOLOG) 1 VIAL SQ SCH ×4 (06:57→22:31)
[2023-03-31 09:02] LABS: BASO % 0.6 % (0-2.0); EOS % 0.9 % (0-4.5); HEMATOCRIT 30.7 % (32.4-45.2); HEMOGLOBIN 10.9 GM/dL (10.7-15.3); LYMPH % 23.8 % (8-40); MCH 30.8 pg (25.7-33.7); MCHC 35.6 g/dl (32.0-36.0); MEAN CELL VOLUME 86.4 fl (80-96); MEAN PLT VOLUME 8.3 fl (7.5-11.1); MONO % 7.2 % (3.8-10.2); NEUT % 67.5 % (42.8-82.8); PLATELET COUNT 242 10^3/uL (134-434); RBC 3.56 M/mm3 (3.60-5.2); RDW 14.6 % (11.6-15.6); WHITE BLOOD COUNT 7.9 K/mm3 (4.0-10.0)
[2023-03-31 09:26] LABS: POTASSIUM 4.1 mmol/L (3.5-5.1)
[2023-03-31] MEDS: FERROUS SO4 325 MG TABLET (FP) PO SCH (09:29)
[2023-03-31] MEDS: DOCUSATE SODIUM 100 MG CAPSULE (FP) PO SCH (09:29)
[2023-03-31] MEDS: LISINOPRIL 5 MG TABLET PO SCH (09:29)
[2023-03-31] MEDS: MULTIVITAMINS (DAILY MVI) TABLET (FP) PO SCH (09:29)
[2023-03-31] MEDS: POLYETHYLENE GLYCOL (HEALTHYLAX) 3350 17 GM PACKET PO SCH (09:29)
[2023-03-31] MEDS: FAMOTIDINE 20 MG TABLET PO SCH (09:29)
[2023-03-31 09:35] LABS: CALCIUM 8.9 mg/dL (8.5-10.1)
[2023-03-31 09:36] LABS: ALBUMIN 2.5 g/dl (3.4-5.0); BLOOD UREA NITROGEN 24.1 mg/dL (7-18)
[2023-03-31 09:39] LABS: CREATININE 0.5 mg/dL (0.55-1.3)
[2023-03-31 09:41] LABS: BILIRUBIN,TOTAL 0.8 mg/dL (0.2-1)
[2023-03-31] MEDS: PIPERACILLIN/TAZOB 3.375 GM 3.375 GM in DEXTROSE 5%-WATER - 50 ML IVPB SCH ×2 (14:50→18:24)
[2023-03-31] MEDS: oxyCODONE HCL 5 MG TABLET PO PRN ×2 (14:51→22:26)
[2023-03-31] MEDS: COLLAGENASE CLOSTRIDIUM HIST. 30 GRAMS TUBE TP SCH (14:58)
[2023-03-31] MEDS: VANCOMYCIN/WATER FOR INJ (PEG) 1,000 MG/200 ML BAG IVPB SCH (15:31)
[2023-03-31] MEDS: AMINO ACIDS/PROTEIN HYDROLYS 30 ML LIQUID.PKT PO SCH (16:37)
[2023-04-01] MEDS: PIPERACILLIN/TAZOB 3.375 GM 3.375 GM in DEXTROSE 5%-WATER - 50 ML IVPB SCH ×3 (01:24→17:07)
[2023-04-01] MEDS: VANCOMYCIN/WATER FOR INJ (PEG) 1,000 MG/200 ML BAG IVPB SCH ×2 (01:24→15:36)
[2023-04-01] MEDS: GABAPENTIN 300 MG CAPSULE PO SCH ×4 (05:21→22:17)
[2023-04-01] MEDS: INSULIN SLIDING SCALE (NOVOLOG) 1 VIAL SQ SCH ×4 (06:08→22:21)
[2023-04-01] MEDS: INSULIN (NOVOLOG MIX 70/30) 100 UNITS/ML MDV SQ SCH ×2 (06:42→16:12)
[2023-04-01] MEDS: oxyCODONE HCL 5 MG TABLET PO PRN (06:42)
[2023-04-01] MEDS: AMINO ACIDS/PROTEIN HYDROLYS 30 ML LIQUID.PKT PO SCH ×3 (09:14→17:07)
[2023-04-01] MEDS: POLYETHYLENE GLYCOL (HEALTHYLAX) 3350 17 GM PACKET PO SCH (09:14)
[2023-04-01] MEDS: DOCUSATE SODIUM 100 MG CAPSULE (FP) PO SCH (09:15)
[2023-04-01] MEDS: MULTIVITAMINS (DAILY MVI) TABLET (FP) PO SCH (09:15)
[2023-04-01] MEDS: FAMOTIDINE 20 MG TABLET PO SCH (09:15)
[2023-04-01] MEDS: FERROUS SO4 325 MG TABLET (FP) PO SCH (09:15)
[2023-04-01] MEDS: COLLAGENASE CLOSTRIDIUM HIST. 30 GRAMS TUBE TP SCH (09:16)
[2023-04-01] MEDS: LISINOPRIL 5 MG TABLET PO SCH ×2 (09:17→11:26)
[2023-04-01] MEDS: HEPARIN NA (PORCINE) 5,000 UNITS/ML 1ML VIAL SQ SCH ×2 (09:22→22:17)
[2023-04-01] MEDS: ASCORBIC ACID 500 MG TABLET (FP) PO SCH (09:23)
[2023-04-02] MEDS: PIPERACILLIN/TAZOB 3.375 GM 3.375 GM in DEXTROSE 5%-WATER - 50 ML IVPB SCH ×3 (01:50→17:52)
[2023-04-02] MEDS: VANCOMYCIN/WATER FOR INJ (PEG) 1,000 MG/200 ML BAG IVPB SCH ×2 (02:17→15:29)
[2023-04-02] MEDS: GABAPENTIN 300 MG CAPSULE PO SCH ×3 (05:31→22:35)
[2023-04-02] MEDS: INSULIN (NOVOLOG MIX 70/30) 100 UNITS/ML MDV SQ SCH ×2 (06:12→16:39)
[2023-04-02] MEDS: INSULIN SLIDING SCALE (NOVOLOG) 1 VIAL SQ SCH ×4 (06:13→22:35)
[2023-04-02 07:11] LABS: BASO % 0.9 % (0-2.0); HEMATOCRIT 32.4 % (32.4-45.2); HEMOGLOBIN 11.3 GM/dL (10.7-15.3); MCH 30.6 pg (25.7-33.7); MCHC 34.9 g/dl (32.0-36.0); MEAN CELL VOLUME 87.6 fl (80-96); MEAN PLT VOLUME 7.6 fl (7.5-11.1); MONO % 6.6 % (3.8-10.2); NEUT % 58.5 % (42.8-82.8); PLATELET COUNT 272 10^3/uL (134-434); RDW 14.5 % (11.6-15.6); WHITE BLOOD COUNT 6.7 K/mm3 (4.0-10.0)
[2023-04-02 07:19] LABS: POTASSIUM 4.2 mmol/L (3.5-5.1)
[2023-04-02 07:24] LABS: ALBUMIN 2.6 g/dl (3.4-5.0); BLOOD UREA NITROGEN 22.2 mg/dL (7-18)
[2023-04-02 07:27] LABS: CREATININE 0.6 mg/dL (0.55-1.3)
[2023-04-02 07:28] LABS: TOT PROT 6.4 g/dl (6.4-8.2)
[2023-04-02 07:30] LABS: BILIRUBIN,TOTAL 0.4 mg/dL (0.2-1)
[2023-04-02] MEDS: AMINO ACIDS/PROTEIN HYDROLYS 30 ML LIQUID.PKT PO SCH ×3 (08:41→16:39)
[2023-04-02] MEDS: COLLAGENASE CLOSTRIDIUM HIST. 30 GRAMS TUBE TP SCH (10:00)
[2023-04-02] MEDS: LISINOPRIL 5 MG TABLET PO SCH (10:20)
[2023-04-02] MEDS: MULTIVITAMINS (DAILY MVI) TABLET (FP) PO SCH (10:20)
[2023-04-02] MEDS: HEPARIN NA (PORCINE) 5,000 UNITS/ML 1ML VIAL SQ SCH ×2 (10:20→22:35)
[2023-04-02] MEDS: FAMOTIDINE 20 MG TABLET PO SCH (10:20)
[2023-04-02] MEDS: ASCORBIC ACID 500 MG TABLET (FP) PO SCH (10:20)
[2023-04-02] MEDS: FERROUS SO4 325 MG TABLET (FP) PO SCH (10:20)
[2023-04-02] MEDS: DOCUSATE SODIUM 100 MG CAPSULE (FP) PO SCH (10:20)
[2023-04-02] MEDS: POLYETHYLENE GLYCOL (HEALTHYLAX) 3350 17 GM PACKET PO SCH (10:21)
[2023-04-02] MEDS ORDERED: INSULIN (NOVOLOG) ASPART 100 UNITS/ML 10ML VIAL ONE (16:36)
[2023-04-03] MEDS: PIPERACILLIN/TAZOB 3.375 GM 3.375 GM in DEXTROSE 5%-WATER - 50 ML IVPB SCH ×3 (01:58→17:05)
[2023-04-03] MEDS: VANCOMYCIN/WATER FOR INJ (PEG) 1,000 MG/200 ML BAG IVPB SCH ×2 (02:41→13:00)
[2023-04-03] MEDS: INSULIN (NOVOLOG MIX 70/30) 100 UNITS/ML MDV SQ SCH ×2 (06:21→17:03)
[2023-04-03] MEDS: GABAPENTIN 300 MG CAPSULE PO SCH ×3 (06:22→21:19)
[2023-04-03] MEDS: INSULIN SLIDING SCALE (NOVOLOG) 1 VIAL SQ SCH ×4 (06:22→21:19)
[2023-04-03] MEDS: AMINO ACIDS/PROTEIN HYDROLYS 30 ML LIQUID.PKT PO SCH ×3 (08:29→17:05)
[2023-04-03] MEDS: ASCORBIC ACID 500 MG TABLET (FP) PO SCH (11:00)
[2023-04-03] MEDS: MULTIVITAMINS (DAILY MVI) TABLET (FP) PO SCH (11:01)
[2023-04-03] MEDS: FERROUS SO4 325 MG TABLET (FP) PO SCH (11:01)
[2023-04-03] MEDS: LISINOPRIL 5 MG TABLET PO SCH (11:01)
[2023-04-03] MEDS: COLLAGENASE CLOSTRIDIUM HIST. 30 GRAMS TUBE TP SCH (11:01)
[2023-04-03] MEDS: FAMOTIDINE 20 MG TABLET PO SCH (11:01)
[2023-04-03] MEDS: POLYETHYLENE GLYCOL (HEALTHYLAX) 3350 17 GM PACKET PO SCH (11:02)
[2023-04-03] MEDS: DOCUSATE SODIUM 100 MG CAPSULE (FP) PO SCH (11:02)
[2023-04-03] MEDS: HEPARIN NA (PORCINE) 5,000 UNITS/ML 1ML VIAL SQ SCH ×3 (11:02→21:42)
[2023-04-03] MEDS ORDERED: INSULIN (NOVOLOG MIX 70/30) 100 UNITS/ML MDV SQ ONE (17:08)
[2023-04-03 17:46] LABS: N-TERMINAL BNP 303.5 pg/ml (5-450)
[2023-04-04] MEDS ORDERED: ceFAZolin SODIUM 1 GM VIAL IVPB ONE
[2023-04-04] MEDS: PIPERACILLIN/TAZOB 3.375 GM 3.375 GM in DEXTROSE 5%-WATER - 50 ML IVPB SCH ×3 (01:00→18:57)
[2023-04-04] MEDS: VANCOMYCIN/WATER FOR INJ (PEG) 1,000 MG/200 ML BAG IVPB SCH (01:33)
[2023-04-04] MEDS: INSULIN (NOVOLOG MIX 70/30) 100 UNITS/ML MDV SQ SCH ×2 (06:33→18:54)
[2023-04-04] MEDS: GABAPENTIN 300 MG CAPSULE PO SCH ×3 (06:33→21:24)
[2023-04-04] MEDS: INSULIN SLIDING SCALE (NOVOLOG) 1 VIAL SQ SCH ×4 (06:33→21:24)
[2023-04-04] MEDS: AMINO ACIDS/PROTEIN HYDROLYS 30 ML LIQUID.PKT PO SCH ×3 (11:27→18:56)
[2023-04-04] MEDS: HEPARIN NA (PORCINE) 5,000 UNITS/ML 1ML VIAL SQ SCH ×2 (11:32→21:24)
[2023-04-04] MEDS: ASCORBIC ACID 500 MG TABLET (FP) PO SCH (11:35)
[2023-04-04] MEDS: FAMOTIDINE 20 MG TABLET PO SCH (11:35)
[2023-04-04] MEDS: FERROUS SO4 325 MG TABLET (FP) PO SCH (11:35)
[2023-04-04] MEDS: DOCUSATE SODIUM 100 MG CAPSULE (FP) PO SCH (11:35)
[2023-04-04] MEDS: MULTIVITAMINS (DAILY MVI) TABLET (FP) PO SCH (11:35)
[2023-04-04] MEDS: LISINOPRIL 5 MG TABLET PO SCH (11:35)
[2023-04-04] MEDS: POLYETHYLENE GLYCOL (HEALTHYLAX) 3350 17 GM PACKET PO SCH (11:36)
[2023-04-04] MEDS: COLLAGENASE CLOSTRIDIUM HIST. 30 GRAMS TUBE TP SCH (11:36)
[2023-04-04] MEDS ORDERED: PROPOFOL 20 ML ONE ×2 (12:54→13:14)
[2023-04-04] MEDS ORDERED: LIDOCAINE 1% P/F 10 MG/ML VIAL INF ONE ×3 (13:10)
[2023-04-04] MEDS ORDERED: ONDANSETRON 4 MG/2 ML VIAL IVPUSH PRN (13:34)
[2023-04-04] MEDS ORDERED: VANCOMYCIN/WATER FOR INJ (PEG) 1,000 MG/200 ML BAG IVPB SCH ×2 (13:45→14:45)
[2023-04-04] MEDS ORDERED: PIPERACILLIN/TAZOBACTAM 3.375 GM VIAL IVPB ONE (18:24)
[2023-04-05] MEDS: PIPERACILLIN/TAZOB 3.375 GM 3.375 GM in DEXTROSE 5%-WATER - 50 ML IVPB SCH ×3 (01:05→17:44)
[2023-04-05] MEDS: GABAPENTIN 300 MG CAPSULE PO SCH ×3 (05:16→22:54)
[2023-04-05] MEDS: INSULIN (NOVOLOG MIX 70/30) 100 UNITS/ML MDV SQ SCH ×2 (06:14→17:42)
[2023-04-05] MEDS: INSULIN SLIDING SCALE (NOVOLOG) 1 VIAL SQ SCH ×4 (06:14→23:01)
[2023-04-05] MEDS: DOCUSATE SODIUM 100 MG CAPSULE (FP) PO SCH (10:26)
[2023-04-05] MEDS: FERROUS SO4 325 MG TABLET (FP) PO SCH (10:26)
[2023-04-05] MEDS: LISINOPRIL 5 MG TABLET PO SCH (10:26)
[2023-04-05] MEDS: FAMOTIDINE 20 MG TABLET PO SCH (10:26)
[2023-04-05] MEDS: ASCORBIC ACID 500 MG TABLET (FP) PO SCH (10:26)
[2023-04-05] MEDS: POLYETHYLENE GLYCOL (HEALTHYLAX) 3350 17 GM PACKET PO SCH (10:27)
[2023-04-05] MEDS: MULTIVITAMINS (DAILY MVI) TABLET (FP) PO SCH (10:27)
[2023-04-05] MEDS: HEPARIN NA (PORCINE) 5,000 UNITS/ML 1ML VIAL SQ SCH ×2 (10:27→22:54)
[2023-04-05] MEDS: COLLAGENASE CLOSTRIDIUM HIST. 30 GRAMS TUBE TP SCH (10:28)
[2023-04-05] MEDS: AMINO ACIDS/PROTEIN HYDROLYS 30 ML LIQUID.PKT PO SCH ×3 (10:28→17:43)
[2023-04-05] MEDS ORDERED: INSULIN (NOVOLOG) ASPART 100 UNITS/ML 10ML VIAL ONE ×2 (11:44→22:08)
[2023-04-06] MEDS: PIPERACILLIN/TAZOB 3.375 GM 3.375 GM in DEXTROSE 5%-WATER - 50 ML IVPB SCH ×3 (02:09→17:14)
[2023-04-06] MEDS ORDERED: INSULIN (NOVOLOG) ASPART 100 UNITS/ML 10ML VIAL ONE ×3 (05:53→22:37)
[2023-04-06] MEDS: INSULIN (NOVOLOG MIX 70/30) 100 UNITS/ML MDV SQ SCH ×2 (06:17→17:14)
[2023-04-06] MEDS: GABAPENTIN 300 MG CAPSULE PO SCH ×3 (06:17→22:44)
[2023-04-06] MEDS: INSULIN SLIDING SCALE (NOVOLOG) 1 VIAL SQ SCH ×4 (06:25→22:47)
[2023-04-06] MEDS ORDERED: VANCOMYCIN/WATER FOR INJ (PEG) 1,000 MG/200 ML BAG IVPB SCH (08:00)
[2023-04-06] MEDS: COLLAGENASE CLOSTRIDIUM HIST. 30 GRAMS TUBE TP SCH (11:45)
[2023-04-06] MEDS: HEPARIN NA (PORCINE) 5,000 UNITS/ML 1ML VIAL SQ SCH ×2 (11:46→22:44)
[2023-04-06] MEDS: POLYETHYLENE GLYCOL (HEALTHYLAX) 3350 17 GM PACKET PO SCH (11:46)
[2023-04-06] MEDS: MULTIVITAMINS (DAILY MVI) TABLET (FP) PO SCH (11:47)
[2023-04-06] MEDS: FERROUS SO4 325 MG TABLET (FP) PO SCH (11:47)
[2023-04-06] MEDS: FAMOTIDINE 20 MG TABLET PO SCH (11:47)
[2023-04-06] MEDS: ASCORBIC ACID 500 MG TABLET (FP) PO SCH (11:48)
[2023-04-06] MEDS: LISINOPRIL 5 MG TABLET PO SCH (11:48)
[2023-04-06] MEDS: DOCUSATE SODIUM 100 MG CAPSULE (FP) PO SCH (12:13)
[2023-04-06] MEDS: AMINO ACIDS/PROTEIN HYDROLYS 30 ML LIQUID.PKT PO SCH ×3 (12:13→17:14)
[2023-04-06] MEDS: VANCOMYCIN/WATER FOR INJ (PEG) 1,000 MG/200 ML BAG IVPB SCH (14:23)
[2023-04-07] MEDS: PIPERACILLIN/TAZOB 3.375 GM 3.375 GM in DEXTROSE 5%-WATER - 50 ML IVPB SCH ×3 (02:40→18:20)
[2023-04-07] MEDS: GABAPENTIN 300 MG CAPSULE PO SCH ×3 (07:12→21:46)
[2023-04-07] MEDS: INSULIN SLIDING SCALE (NOVOLOG) 1 VIAL SQ SCH ×4 (07:13→21:59)
[2023-04-07] MEDS: INSULIN (NOVOLOG MIX 70/30) 100 UNITS/ML MDV SQ SCH ×2 (07:13→17:14)
[2023-04-07] MEDS: POLYETHYLENE GLYCOL (HEALTHYLAX) 3350 17 GM PACKET PO SCH (10:51)
[2023-04-07] MEDS: HEPARIN NA (PORCINE) 5,000 UNITS/ML 1ML VIAL SQ SCH ×2 (10:51→21:46)
[2023-04-07] MEDS: FAMOTIDINE 20 MG TABLET PO SCH (10:51)
[2023-04-07] MEDS: MULTIVITAMINS (DAILY MVI) TABLET (FP) PO SCH (10:51)
[2023-04-07] MEDS: AMINO ACIDS/PROTEIN HYDROLYS 30 ML LIQUID.PKT PO SCH ×3 (10:51→18:20)
[2023-04-07] MEDS: LISINOPRIL 5 MG TABLET PO SCH (10:52)
[2023-04-07] MEDS: FERROUS SO4 325 MG TABLET (FP) PO SCH (10:52)
[2023-04-07] MEDS: DOCUSATE SODIUM 100 MG CAPSULE (FP) PO SCH (10:52)
[2023-04-07] MEDS: ACETAMINOPHEN 500 MG TABLET (FP) PO PRN ×2 (10:55→21:50)
[2023-04-07] MEDS: ASCORBIC ACID 500 MG TABLET (FP) PO SCH (10:58)
[2023-04-07] MEDS: COLLAGENASE CLOSTRIDIUM HIST. 30 GRAMS TUBE TP SCH (11:00)
[2023-04-07] MEDS: VANCOMYCIN/WATER FOR INJ (PEG) 1,000 MG/200 ML BAG IVPB SCH (14:45)
[2023-04-07] MEDS ORDERED: INSULIN (NOVOLOG) ASPART 100 UNITS/ML 10ML VIAL ONE ×2 (17:11→21:21)
[2023-04-07] MEDS ORDERED: INSULIN (NOVOLOG MIX 70/30) 100 UNITS/ML MDV SQ ONE (17:11)
[2023-04-08] MEDS: PIPERACILLIN/TAZOB 3.375 GM 3.375 GM in DEXTROSE 5%-WATER - 50 ML IVPB SCH ×3 (02:02→17:56)
[2023-04-08] MEDS ORDERED: INSULIN (NOVOLOG) ASPART 100 UNITS/ML 10ML VIAL ONE ×2 (05:25→21:07)
[2023-04-08] MEDS ORDERED: INSULIN (NOVOLOG MIX 70/30) 100 UNITS/ML MDV SQ ONE (05:57)
[2023-04-08] MEDS: GABAPENTIN 300 MG CAPSULE PO SCH ×3 (06:25→21:36)
[2023-04-08] MEDS: INSULIN (NOVOLOG MIX 70/30) 100 UNITS/ML MDV SQ SCH ×2 (06:25→17:56)
[2023-04-08] MEDS: INSULIN SLIDING SCALE (NOVOLOG) 1 VIAL SQ SCH ×4 (06:30→21:43)
[2023-04-08] MEDS: FAMOTIDINE 20 MG TABLET PO SCH (09:48)
[2023-04-08] MEDS: ASCORBIC ACID 500 MG TABLET (FP) PO SCH (09:48)
[2023-04-08] MEDS: LISINOPRIL 5 MG TABLET PO SCH (09:48)
[2023-04-08] MEDS: DOCUSATE SODIUM 100 MG CAPSULE (FP) PO SCH (09:48)
[2023-04-08] MEDS: FERROUS SO4 325 MG TABLET (FP) PO SCH (09:48)
[2023-04-08] MEDS: MULTIVITAMINS (DAILY MVI) TABLET (FP) PO SCH (09:48)
[2023-04-08] MEDS: AMINO ACIDS/PROTEIN HYDROLYS 30 ML LIQUID.PKT PO SCH ×3 (09:49→17:56)
[2023-04-08] MEDS: POLYETHYLENE GLYCOL (HEALTHYLAX) 3350 17 GM PACKET PO SCH (09:49)
[2023-04-08] MEDS: COLLAGENASE CLOSTRIDIUM HIST. 30 GRAMS TUBE TP SCH (10:05)
[2023-04-08] MEDS: HEPARIN NA (PORCINE) 5,000 UNITS/ML 1ML VIAL SQ SCH ×2 (11:27→21:36)
[2023-04-08] MEDS: VANCOMYCIN/WATER FOR INJ (PEG) 1,000 MG/200 ML BAG IVPB SCH (16:15)
[2023-04-09] MEDS: PIPERACILLIN/TAZOB 3.375 GM 3.375 GM in DEXTROSE 5%-WATER - 50 ML IVPB SCH ×3 (02:41→18:18)
[2023-04-09] MEDS: GABAPENTIN 300 MG CAPSULE PO SCH ×3 (05:56→23:11)
[2023-04-09] MEDS: INSULIN (NOVOLOG MIX 70/30) 100 UNITS/ML MDV SQ SCH ×2 (06:01→18:19)
[2023-04-09] MEDS: INSULIN SLIDING SCALE (NOVOLOG) 1 VIAL SQ SCH ×4 (06:02→23:26)
[2023-04-09] MEDS: FAMOTIDINE 20 MG TABLET PO SCH (09:55)
[2023-04-09] MEDS: MULTIVITAMINS (DAILY MVI) TABLET (FP) PO SCH (09:55)
[2023-04-09] MEDS: DOCUSATE SODIUM 100 MG CAPSULE (FP) PO SCH (09:55)
[2023-04-09] MEDS: AMINO ACIDS/PROTEIN HYDROLYS 30 ML LIQUID.PKT PO SCH ×3 (09:55→18:18)
[2023-04-09] MEDS: ASCORBIC ACID 500 MG TABLET (FP) PO SCH (09:55)
[2023-04-09] MEDS: POLYETHYLENE GLYCOL (HEALTHYLAX) 3350 17 GM PACKET PO SCH (09:55)
[2023-04-09] MEDS: HEPARIN NA (PORCINE) 5,000 UNITS/ML 1ML VIAL SQ SCH ×2 (09:55→23:11)
[2023-04-09] MEDS: LISINOPRIL 5 MG TABLET PO SCH (09:56)
[2023-04-09] MEDS: FERROUS SO4 325 MG TABLET (FP) PO SCH (09:56)
[2023-04-09] MEDS: COLLAGENASE CLOSTRIDIUM HIST. 30 GRAMS TUBE TP SCH (11:10)
[2023-04-09] MEDS ORDERED: INSULIN (NOVOLOG) ASPART 100 UNITS/ML 10ML VIAL ONE ×4 (12:27→23:21)
[2023-04-09] MEDS: VANCOMYCIN/WATER FOR INJ (PEG) 1,000 MG/200 ML BAG IVPB SCH (15:21)
[2023-04-09 22:52] VITALS: RESP 18
[2023-04-10] MEDS: PIPERACILLIN/TAZOB 3.375 GM 3.375 GM in DEXTROSE 5%-WATER - 50 ML IVPB SCH ×3 (03:10→17:05)
[2023-04-10] MEDS: GABAPENTIN 300 MG CAPSULE PO SCH ×3 (06:03→21:44)
[2023-04-10] MEDS: INSULIN (NOVOLOG MIX 70/30) 100 UNITS/ML MDV SQ SCH ×2 (06:30→16:38)
[2023-04-10] MEDS: INSULIN SLIDING SCALE (NOVOLOG) 1 VIAL SQ SCH ×5 (06:31→22:05)
[2023-04-10] MEDS: FERROUS SO4 325 MG TABLET (FP) PO SCH (09:47)
[2023-04-10] MEDS: FAMOTIDINE 20 MG TABLET PO SCH (09:47)
[2023-04-10] MEDS: MULTIVITAMINS (DAILY MVI) TABLET (FP) PO SCH (09:47)
[2023-04-10] MEDS: DOCUSATE SODIUM 100 MG CAPSULE (FP) PO SCH (09:47)
[2023-04-10] MEDS: POLYETHYLENE GLYCOL (HEALTHYLAX) 3350 17 GM PACKET PO SCH (09:47)
[2023-04-10] MEDS: ASCORBIC ACID 500 MG TABLET (FP) PO SCH (09:47)
[2023-04-10] MEDS: AMINO ACIDS/PROTEIN HYDROLYS 30 ML LIQUID.PKT PO SCH ×3 (09:48→17:05)
[2023-04-10] MEDS: LISINOPRIL 5 MG TABLET PO SCH (09:48)
[2023-04-10] MEDS: COLLAGENASE CLOSTRIDIUM HIST. 30 GRAMS TUBE TP SCH (09:49)
[2023-04-10] MEDS ORDERED: INSULIN (NOVOLOG) ASPART 100 UNITS/ML 10ML VIAL ONE ×2 (10:53→21:42)
[2023-04-10] MEDS: VANCOMYCIN/WATER FOR INJ (PEG) 1,000 MG/200 ML BAG IVPB SCH (14:37)
[2023-04-11] MEDS: PIPERACILLIN/TAZOB 3.375 GM 3.375 GM in DEXTROSE 5%-WATER - 50 ML IVPB SCH ×3 (02:24→17:05)
[2023-04-11] MEDS ORDERED: INSULIN (NOVOLOG) ASPART 100 UNITS/ML 10ML VIAL ONE ×3 (06:00→16:53)
[2023-04-11] MEDS: INSULIN (NOVOLOG MIX 70/30) 100 UNITS/ML MDV SQ SCH ×3 (06:01→16:56)
[2023-04-11] MEDS: GABAPENTIN 300 MG CAPSULE PO SCH ×2 (06:01→13:27)
[2023-04-11] MEDS: INSULIN SLIDING SCALE (NOVOLOG) 1 VIAL SQ SCH ×3 (06:31→16:56)
[2023-04-11] MEDS: DOCUSATE SODIUM 100 MG CAPSULE (FP) PO SCH (10:13)
[2023-04-11] MEDS: FERROUS SO4 325 MG TABLET (FP) PO SCH (10:13)
[2023-04-11] MEDS: MULTIVITAMINS (DAILY MVI) TABLET (FP) PO SCH (10:13)
[2023-04-11] MEDS: AMINO ACIDS/PROTEIN HYDROLYS 30 ML LIQUID.PKT PO SCH ×3 (10:14→16:57)
[2023-04-11] MEDS: LISINOPRIL 5 MG TABLET PO SCH (10:14)
[2023-04-11] MEDS: FAMOTIDINE 20 MG TABLET PO SCH (10:14)
[2023-04-11] MEDS: POLYETHYLENE GLYCOL (HEALTHYLAX) 3350 17 GM PACKET PO SCH (10:15)
[2023-04-11] MEDS: ASCORBIC ACID 500 MG TABLET (FP) PO SCH (10:51)
[2023-04-11] MEDS: COLLAGENASE CLOSTRIDIUM HIST. 30 GRAMS TUBE TP SCH (10:52)
[2023-04-11] MEDS: VANCOMYCIN/WATER FOR INJ (PEG) 1,000 MG/200 ML BAG IVPB SCH (14:47)
[2023-04-11 16:05] VITALS: BP 134/76; PULSE 73; TEMP 98.8
== END 2023-04-11 19:50 | DRG 571 ==
LOC: JER 14:00 → JERBED 16:28 → J7W 17:33 → J8W 04-03 15:24
PROVIDERS: ADMIT Specialist; ATTEND Specialist
PROC: 0JB70ZZ Excision of Back Subcutaneous Tissue and Fascia, Open Approach (ICD-10-PCS; principal; 2023-04-04 12:30)
DX: L89.154 Pressure ulcer of sacral region, stage 4 (principal); I31.39 Other pericardial effusion (noninflammatory); N39.0 Urinary tract infection, site not specified; I96 Gangrene, not elsewhere classified; L89.322 Pressure ulcer of left buttock, stage 2; I10 Essential (primary) hypertension; M81.0 Age-related osteoporosis without current pathological fracture; F41.8 Other specified anxiety disorders; M54.50 Low back pain, unspecified; M41.80 Other forms of scoliosis, site unspecified; I25.10 Atherosclerotic heart disease of native coronary artery without angina pectoris; B96.4 Proteus (mirabilis) (morganii) as the cause of diseases classified elsewhere; B95.61 Methicillin susceptible Staphylococcus aureus infection as the cause of diseases classified elsewhere; B95.2 Enterococcus as the cause of diseases classified elsewhere; Z74.01 Bed confinement status; Z95.0 Presence of cardiac pacemaker
CPT/HCPCS: 0241U-QW; 36415; 71045-TC-FY; 80053; 80061; 81003; 82962; 83036; 83605; 83735; 83880; 84443; 84484; 85025; 85610; 85651; 85730; 86140; 86850; 86900; 86901; 87040; 87070; 87076; 87086; 87186; 87205; 88304-TC; 93005; 93010; 93306-TC; 94760; 99285-25; C9803-CS; G0480; J1644; U0003; U0005

== ENCOUNTER 2024-01-03 20:29 | Observation (INO) | payer OTHER ==
[2024-01-03 22:15] LABS: BASO % 0.5 % (0-2.0); EOS % 1.1 % (0-4.5); HEMATOCRIT 38.2 % (32.4-45.2); HEMOGLOBIN 13.2 GM/dL (10.7-15.3); LYMPH % 35.6 % (8-40); MCHC 34.7 g/dl (32.0-36.0); MEAN CELL VOLUME 89.4 fl (80-96); MEAN PLT VOLUME 7.6 fl (7.5-11.1); MONO % 8.5 % (3.8-10.2); NEUT % 54.3 % (42.8-82.8); PLATELET COUNT 212 10^3/uL (134-434); RBC 4.27 M/mm3 (3.60-5.2); RDW 14.4 % (11.6-15.6); WHITE BLOOD COUNT 7.2 K/mm3 (4.0-10.0)
[2024-01-03 22:35] LABS: POTASSIUM 4.6 mmol/L (3.5-5.1)
[2024-01-03 22:37] LABS: CALCIUM 9.3 mg/dL (8.5-10.1)
[2024-01-03 22:38] LABS: ALBUMIN 3.2 g/dl (3.4-5.0); BLOOD UREA NITROGEN 41.4 mg/dL (7-18); MAGNESIUM 2.1 mg/dL (1.8-2.4)
[2024-01-03 22:41] LABS: CREATININE 0.7 mg/dL (0.55-1.3)
[2024-01-03 22:42] LABS: BILIRUBIN,TOTAL 0.3 mg/dL (0.2-1); TOT PROT 6.8 g/dl (6.4-8.2)
[2024-01-03] MEDS ORDERED: ASPIRIN 81 MG CHEWABLE TABLETS ONE (23:57)
[2024-01-03] MEDS ORDERED: ACETAMINOPHEN 325 MG TABLET (FP) ONE (23:57)
[2024-01-04] MEDS: ACETAMINOPHEN 325 MG TABLET (FP) PO ONE (00:04)
[2024-01-04] MEDS: ASPIRIN 81 MG CHEWABLE TABLETS PO ONE (00:04)
[2024-01-04] MEDS ORDERED: ACETAMINOPHEN 500 MG TABLET (FP) PO PRN (07:22)
[2024-01-04] MEDS ORDERED: GABAPENTIN 300 MG CAPSULE ONE ×2 (07:51→14:51)
[2024-01-04] MEDS: GABAPENTIN 300 MG CAPSULE PO SCH (07:54)
[2024-01-04] MEDS ORDERED: FERROUS SO4 325 MG TABLET (FP) ONE (09:22)
[2024-01-04] MEDS ORDERED: MULTIVITAMINS (DAILY MVI) TABLET (FP) ONE (09:22)
[2024-01-04] MEDS ORDERED: LISINOPRIL 5 MG TABLET ONE (09:22)
[2024-01-04] MEDS ORDERED: OSELTAMIVIR PHOSPHATE 75 MG CAPSULE ONE (09:22)
[2024-01-04] MEDS ORDERED: DOCUSATE SODIUM 100 MG CAPSULE (FP) PO ONE (09:22)
[2024-01-04] MEDS ORDERED: FAMOTIDINE 20 MG TABLET ONE (09:22)
[2024-01-04] MEDS ORDERED: HEPARIN NA (PORCINE) 5,000 UNITS/ML 1ML VIAL ONE (09:23)
[2024-01-04] MEDS ORDERED: ASCORBIC ACID 500 MG TABLET (FP) ONE (09:26)
[2024-01-04] MEDS: HEPARIN NA (PORCINE) 5,000 UNITS/ML 1ML VIAL SQ SCH (09:40)
[2024-01-04] MEDS: FERROUS SO4 325 MG TABLET (FP) PO SCH (09:40)
[2024-01-04] MEDS: DOCUSATE SODIUM 100 MG CAPSULE (FP) PO SCH (09:40)
[2024-01-04] MEDS: MULTIVITAMINS (DAILY MVI) TABLET (FP) PO SCH (09:41)
[2024-01-04] MEDS: ASCORBIC ACID 500 MG TABLET (FP) PO SCH (09:41)
[2024-01-04] MEDS: OSELTAMIVIR PHOSPHATE 75 MG CAPSULE PO SCH (09:41)
[2024-01-04] MEDS: LISINOPRIL 5 MG TABLET PO SCH (09:41)
[2024-01-04] MEDS: FAMOTIDINE 20 MG TABLET PO SCH (09:41)
[2024-01-04] MEDS: LACTOBACILLUS ACIDOPHILUS 1 TABLET PO SCH (14:48)
[2024-01-04] MEDS: AMINO ACIDS/PROTEIN HYDROLYS 30 ML LIQUID.PKT PO SCH (16:17)
[2024-01-04] MEDS ORDERED: INSULIN ASPART SLIDING SCALE (NOVOLOG) 1 VIAL SQ SCH (16:30)
[2024-01-04 16:36] VITALS: BMI 23.6
[2024-01-04] MEDS: INSULIN (NOVOLOG MIX 70/30) 100 UNITS/ML MDV SQ SCH (17:17)
[2024-01-04] MEDS ORDERED: INSULIN (NOVOLOG MIX 70/30) 100 UNITS/ML MDV SQ ONE (17:28)
[2024-01-05] MEDS: POLYETHYLENE GLYCOL (HEALTHYLAX) 3350 17 GM PACKET PO SCH (09:20)
[2024-01-05 14:06] LABS: N-TERMINAL BNP 407.3 pg/ml (5-450)
[2024-01-05] MEDS: ATORVASTATIN CA 10 MG TABLET (FP) PO SCH (21:39)
[2024-01-06 09:51] LABS: BASO % 0.5 % (0-2.0); EOS % 1.3 % (0-4.5); HEMATOCRIT 40.9 % (32.4-45.2); HEMOGLOBIN 13.7 GM/dL (10.7-15.3); LYMPH % 35.1 % (8-40); MCH 30.2 pg (25.7-33.7); MCHC 33.4 g/dl (32.0-36.0); MEAN CELL VOLUME 90.4 fl (80-96); MEAN PLT VOLUME 7.9 fl (7.5-11.1); MONO % 7.6 % (3.8-10.2); NEUT % 55.5 % (42.8-82.8); PLATELET COUNT 243 10^3/uL (134-434); RBC 4.53 M/mm3 (3.60-5.2); RDW 13.9 % (11.6-15.6); WHITE BLOOD COUNT 6.4 K/mm3 (4.0-10.0)
[2024-01-06 10:09] LABS: POTASSIUM 4.1 mmol/L (3.5-5.1)
[2024-01-06 10:11] LABS: BLOOD UREA NITROGEN 33.6 mg/dL (7-18); CALCIUM 8.9 mg/dL (8.5-10.1)
[2024-01-06 10:12] LABS: ALBUMIN 3.2 g/dl (3.4-5.0)
[2024-01-06 10:15] LABS: CREATININE 0.5 mg/dL (0.55-1.3)
[2024-01-06 10:16] LABS: BILIRUBIN,TOTAL 0.5 mg/dL (0.2-1); TOT PROT 6.5 g/dl (6.4-8.2)
[2024-01-08 22:53] VITALS: RESP 18
[2024-01-09 09:49] VITALS: BP 130/60; PULSE 63; TEMP 98.3
== END 2024-01-09 14:22 ==
LOC: JER 20:29 → JERBED 23:35 → J4W 01-04 15:23
PROVIDERS: ADMIT Specialist; ATTEND Specialist
PROC: 3E013VG Introduction of Insulin into Subcutaneous Tissue, Percutaneous Approach (ICD-10-PCS; principal; 2024-01-03)
DX: J09.X2 Influenza due to identified novel influenza A virus with other respiratory manifestations (principal); R07.9 Chest pain, unspecified; I25.10 Atherosclerotic heart disease of native coronary artery without angina pectoris; E11.9 Type 2 diabetes mellitus without complications; F03.90 Unspecified dementia, unspecified severity, without behavioral disturbance, psychotic disturbance, mood disturbance, and anxiety; I10 Essential (primary) hypertension; M19.90 Unspecified osteoarthritis, unspecified site; Z88.6 Allergy status to analgesic agent; M81.0 Age-related osteoporosis without current pathological fracture; M62.81 Muscle weakness (generalized); R58 Hemorrhage, not elsewhere classified; Z95.0 Presence of cardiac pacemaker; M41.9 Scoliosis, unspecified
CPT/HCPCS: 0241U-QW; 36415; 71045-TC-FY; 80053; 80061; 82728; 82962; 83036; 83540; 83550; 83735; 83880; 84443; 84484; 85025; 93005; 93010; 94010; 96372; 99285-25; G0378; J1644